=== PATIENT | male | born 1955 | race Caucasian/White ===

== ENCOUNTER 2017-03-11 09:23 | Emergency (ER) | payer BC, OTHER ==
[2017-03-11 10:18] VITALS: BP 139/87
[2017-03-11] MEDS ORDERED: DOXYcycline CAP(*) 100 MG PO ONE (10:35)
--- NOTE | 2017-03-11 11:54 | UC ---
Skin Complaint HPI - HPI Summary HPI Summary: Pt c/o tick bite, tick still attached to right upper lateral axilla. Pt thinks he was bit earlier today. - History of Current Complaint Chief Complaint: [employer] Time Seen by Provider: 03/11/17 10:31 Stated Complaint: TICK Hx Obtained From: Patient Onset/Duration: Sudden Onset, Lasting Hours, Still Present Skin Exposure Onset/Duration: Hours Ago Timing: Constant Onset Severity: Mild Current Severity: Mild Pain Intensity: 0 Pain Scale Used: 0-10 Numeric Location: Discrete - right lateral upper axilla Aggravating Factor(s): Touch Alleviating Factor(s): Unknown, Other - tick removal Associated Signs & Symptoms: Positive: Tenderness Related History: Insect Bite/Sting - Allergy/Home Medications Allergies/Adverse Reactions: Allergies Allergy/AdvReac Type Severity Reaction Status Date / Time No Known Allergies Allergy Verified 03/11/17 10:18 Home Medications: Home Medications Rosuvastatin Calcium [Crestor] 20 mg PO QPM 03/11/17 [History Confirmed 03/11/17 ] Review of Systems Constitutional: Negative Skin: Other - tick bite, tick still still attached Eyes: Negative ENT: Negative Respiratory: Negative Cardiovascular: Negative Gastrointestinal: Negative Genitourinary: Negative Motor: Negative Neurovascular: Negative Musculoskeletal: Negative Neurological: Negative Psychological: Negative Is Patient Immunocompromised?: No All Other Systems Reviewed And Are Negative: Yes PMH/Surg Hx/FS Hx/Imm Hx Previously Healthy: Yes - Surgical History Surgical History: None - Family History Known Family History: Positive: Cardiac Disease - Social History Occupation: Employed Full-time Lives: With Family Alcohol Use: None Substance Use Type: None Smoking Status (MU): Former Smoker Have You Smoked in the Last Year: No Household Exposure Type: Cigars Physical Exam Triage Information Reviewed: Yes Appearance: Well-Appearing Vital Signs: Initial Vital Signs Temp 97.8 F 03/11/17 10:12 Pulse 61 03/11/17 10:12 Resp 20 03/11/17 10:12 BP 139/87 03/11/17 10:12 Vital Signs Reviewed: Yes Eye Exam: Normal ENT Exam: Normal Dental Exam: Normal Respiratory Exam: Other Respiratory: Positive: No respiratory distress Musculoskeletal Exam: Normal Neurological Exam: Normal Psychological Exam: Normal Skin Exam: Other - tick attached right upper lateral axilla Course/Dx - Differential Diagnoses - Skin Complaint Differential Diagnoses: Tick Born Illness - Diagnoses Provider Diagnoses: tick bite, tick still attached. tick removed (intact) Discharge - Discharge Plan Condition: Stable Disposition: HOME Patient Education Materials: Tick Bite (ED) Referrals: Anshu Hines MD [Primary Care Provider] - If Needed
== END 2017-03-11 11:05 | disposition home or self-care (01) ==
LOC: UCCORT 09:23
DX: T14.8XXA Other injury of unspecified body region, initial encounter (principal); W57.XXXA Bitten or stung by nonvenomous insect and other nonvenomous arthropods, initial encounter; Y92.9 Unspecified place or not applicable
CPT/HCPCS: 99212; A9270-GY; G0463